=== PATIENT | female | born 1995 | race Caucasian/White ===

== ENCOUNTER 2018-06-07 11:40 | Day surgery (SDC) | payer OTHER ==
[~2018-06-07 11:40] MED LIST: GLYCOPYRROLATE 0.4 MG INJ
[2018-06-07] MEDS ORDERED: CEFAZOLIN 2 GM/50 ML (PMX) 50 ML IVPB (13:00)
[2018-06-07] MEDS: SOD CHLORIDE 0.9% 1,000 ML IV (13:02)
[2018-06-07] MEDS ORDERED: MIDAZOLAM 1 MG/ML 2 ML INJ (13:51)
[2018-06-07] MEDS ORDERED: CEFAZOLIN 1 GM INJ (13:51)
[2018-06-07] MEDS ORDERED: DEXAMETHASONE 4 MG/ML 1 ML INJ (13:51)
[2018-06-07] MEDS ORDERED: PROPOFOL 20 ML (13:51)
[2018-06-07] MEDS ORDERED: ONDANSETRON 4 MG INJ (13:51)
[2018-06-07] MEDS ORDERED: NEOSTIGMINE 3 MG/3 ML SYRINGE (13:51)
[2018-06-07] MEDS ORDERED: FENTAnyl 50 MCG/ML VIAL (13:51)
[2018-06-07] MEDS ORDERED: ROCURONIUM 50 MG INJ (13:51)
[2018-06-07] MEDS ORDERED: ROPIVACAINE 0.5 % 30 ML VIAL (13:54)
[2018-06-07] MEDS ORDERED: MIDAZOLAM 1 MG/ML 2 ML INJ IV (15:30)
[2018-06-07] MEDS ORDERED: ALBUTEROL 0.083% (NEB) 2.5 MG/3 ML AMP HHN (15:30)
[2018-06-07] MEDS ORDERED: HYDROmorphONE 1 MG/5 ML IV SYRINGE IV (15:30)
[2018-06-07] MEDS ORDERED: LABETALOL HCL 20MG INJ IV (15:30)
[2018-06-07] MEDS ORDERED: DIPHENHYDRAMINE 50 MG INJ IV (15:30)
[2018-06-07] MEDS ORDERED: OXYCODONE/ACETAMINOPHEN (5/325) TAB PO ×2 (15:30)
[2018-06-07] MEDS ORDERED: EPHEDrine SULFATE 50 MG/5 ML SYG IV (15:30)
[2018-06-07] MEDS ORDERED: hydrALAzine 20 MG INJ IV (15:30)
[2018-06-07] MEDS ORDERED: TRIMETHOBENZAMIDE 100 MG/ML VIAL IM (15:30)
[2018-06-07] MEDS ORDERED: IPRATROPIUM (NEB) 0.5 MG/2.5 ML AMP HHN (15:30)
[2018-06-07] MEDS ORDERED: FENTAnyl 50 MCG/ML VIAL IV ×2 (15:30)
[2018-06-07] MEDS: ONDANSETRON 4 MG INJ IV (15:55)
[2018-06-07] MEDS: MEPERIDINE 25 MG INJ IV (15:55)
[2018-06-07] MEDS: HYDROmorphONE 1 MG/5 ML IV SYRINGE IV ×2 (15:55→16:01)
[2018-06-07] MEDS: FENTAnyl 50 MCG/ML VIAL IV (17:04)
[2018-06-07] MEDS: HYDROCODONE/APAP (5/325) TAB PO (17:18)
== END 2018-06-07 18:05 | disposition home or self-care (01) ==
LOC: SDS 11:40
DX: K80.10 Calculus of gallbladder with chronic cholecystitis without obstruction (principal)
CPT/HCPCS: 47562; 84703; 88304